=== PATIENT | male | born 1955 | race Two or more races ===

== ENCOUNTER 2019-02-14 09:51 | Emergency (ER) | payer MEDICARE ==
[~2019-02-14] VITALS: Ht 177.8 cm; Wt 99.4 kg
--- NOTE | 2019-02-14 10:08 | NUR ---
PT TO ED FOR LARGE "INTERNAL" LUMP NEAR RECTUM SINCE FRIDAY. PT STATES LUMP STARTED SMALL AND DRAINED ON FRIDAY, BUT SINCE THEN IT HAS GOTTEN LARGER AND MORE PAINFUL WTIH MINIMAL DRAINAGE. PT CONNECTED TO MONITORS. VSS. AWAITING EDMD ASSESSMENT.
--- NOTE | 2019-02-14 10:39 | NUR ---
iv established and labs and bc x1 drawn. lab at to collect 2nd set of bc. pt resting in room with at bs. no needs expressed. vss. call light within reach. awaiting lab results and ct.
[2019-02-14 10:53] LABS: MEAN CORPUSCULAR HEMOGLOBIN 29.6 pg (27.5-34.5); MEAN CORPUSCULAR HGB CONC 33.5 g/dL (33.2-36.2); MEAN CORPUSCULAR VOLUME 88.3 fL (81-97); MEAN PLATELET VOLUME 7.6 fL (7.4-10.4); PLATELET COUNT 261 x10^3/uL (130-400); RED BLOOD COUNT 4.98 x10^6/uL (4.38-5.82); RED CELL DISTRIBUTION WIDTH 13.6 % (9.4-14.8)
[2019-02-14 11:03] LABS: ALBUMIN 3.4 g/dL (3.4-5.0); ANION GAP 8 mmol/L (5-15); CALCIUM 8.5 mg/dL (8.5-10.1); CHLORIDE 105 mmol/L (98-107)
[2019-02-14 11:06] LABS: ALANINE AMINOTRANSFERASE 36 U/L (12-78); ALKALINE PHOSPHATASE 72 U/L (45-117); BILIRUBIN,TOTAL 3.2 mg/dL (0.2-1.0); CREATININE 1.36 mg/dL (0.7-1.3); TOTAL PROTEIN 7.1 g/dL (6.4-8.2)
[2019-02-14 11:30] LABS: BASOPHILS # (AUTO) 0.05 x10^3/uL (0-0.1); BASOPHILS % (AUTO) 0 % (0-1); EOSINOPHILS # (AUTO) 0.02 x10^3/uL (0-0.4); EOSINOPHILS % (AUTO) 0 % (1-7); LYMPHOCYTES % (AUTO) 10 % (22-44); MD SCAN; MONOCYTES # (AUTO) 0.84 x10^3/uL (0.2-0.8); MONOCYTES % (AUTO) 7 % (2-9); NEUTROPHILS # (AUTO) 10.37 x10^3/uL (1.8-6.8); NEUTROPHILS % (AUTO) 83 % (42-75)
--- NOTE | 2019-02-14 11:31 | NUR ---
PT RESTING IN ROOM WITH AT BS. VSS. NO NEEDS EXPRESSED. AWAITING CT.
[2019-02-14] MEDS ORDERED: OMNIPAQUE 350 MG/ML, 100ML BOTTLE ONE (11:54)
--- NOTE | 2019-02-14 11:56 | NUR ---
PT BACK FROM CT. NO NEEDS EXPRESSED. VSS. AWAITING CT RESULTS.
--- NOTE | 2019-02-14 12:16 | NUR ---
all results back at this time. chart up for recheck.
[2019-02-14] MEDS ORDERED: LIDOCAINE-MPF 1%, 5ML ONE (12:40)
--- NOTE | 2019-02-14 12:56 | NUR ---
PT RESTING IN ROOM WITH AT BS. VSS. NO NEEDS EXPRESSED. PA TO BS FOR I&D.
[2019-02-14] MEDS ORDERED: LIDOCAINE-MPF 1%, 5ML INFIL ONE (13:00)
[2019-02-14] MEDS ORDERED: ONDANSETRON 2MG/ML, 2ML IVPush ONE (13:30)
[2019-02-14] MEDS ORDERED: CEFAZOLIN PMX 1GM/50ML 50 ML IV ONE (13:30)
[2019-02-14] MEDS ORDERED: HYDROmorphone 1 MG/ML, 1ML INJ IV ONE (13:30)
[2019-02-14] MEDS ORDERED: HYDROmorphone 2 MG/ML, 1ML IM ONE (13:30)
[2019-02-14] MEDS ORDERED: SULFAMETH./TRIMETHOPRIM DS 800MG/160MG TABLET PO ONE ×2 (13:30)
[2019-02-14] MEDS ORDERED: CEFAZOLIN 1,000 MG IV ONE (13:30)
[2019-02-14] MEDS ORDERED: CEFAZOLIN 1,000 MG IM ONE (13:30)
[2019-02-14] MEDS ORDERED: SULFAMETH./TRIMETHOPRIM DS 800MG/160MG TABLET ONE (13:31)
[2019-02-14] MEDS ORDERED: CEFAZOLIN PMX 1GM/50ML 50 ML ONE (13:32)
[2019-02-14] MEDS ORDERED: HYDROmorphone 1 MG/ML, 1ML VIAL ONE (13:32)
[2019-02-14] MEDS ORDERED: ONDANSETRON 2MG/ML, 2ML ONE (13:32)
[2019-02-14 13:50] VITALS: BP 126/69
== END 2019-02-14 14:14 | disposition home or self-care (01) ==
LOC: ED 11:37
DX: L02.31 Cutaneous abscess of buttock (principal); K61.1 Rectal abscess
CPT/HCPCS: 36415; 46050; 72193; 80053; 85025; 87040; 96365; 96375; 99284; J0690; J1170; J2405; Q9967; 46040

== ENCOUNTER 2019-02-16 06:41 | Inpatient (IN) | payer MEDICARE ==
[~2019-02-16] VITALS: Ht 177.8 cm; Wt 102.6 kg
[2019-02-16] MEDS ORDERED: ONDANSETRON 2MG/ML, 2ML IVPush ONE (07:00)
[2019-02-16] MEDS ORDERED: VANCOMYCIN 1,500 MG in SODIUM CHLORIDE 0.9% 250 ML IVPB ONE (07:00)
[2019-02-16] MEDS ORDERED: MORPHINE SULFATE 4 MG/ML, 1ML ONE ×2 (07:21→08:41)
[2019-02-16] MEDS ORDERED: ONDANSETRON 2MG/ML, 2ML ONE ×2 (07:21→21:11)
[2019-02-16] MEDS ORDERED: LIDOCAINE-MPF 1%, 5ML INFIL ONE (07:30)
[2019-02-16] MEDS ORDERED: SODIUM CHLORIDE 0.9% 1,000ML IVBOLUS ONE (07:30)
[2019-02-16] MEDS: MORPHINE SULFATE 4 MG/ML, 1ML IV PRN ×2 (07:32→08:46)
[2019-02-16 07:42] LABS: MEAN CORPUSCULAR HEMOGLOBIN 29.5 pg (27.5-34.5); MEAN CORPUSCULAR HGB CONC 33.2 g/dL (33.2-36.2); MEAN CORPUSCULAR VOLUME 88.8 fL (81-97); MEAN PLATELET VOLUME 7.4 fL (7.4-10.4); PLATELET COUNT 293 x10^3/uL (130-400); RED BLOOD COUNT 4.43 x10^6/uL (4.38-5.82); RED CELL DISTRIBUTION WIDTH 13.6 % (9.4-14.8)
--- NOTE | 2019-02-16 07:42 | NUR ---
Labs and blood cultures drawn, IV fluid bolus and antibiotics infusing as documented. Patient is resting in gurney in prone position currently denying pain. Continuous blood pressure and SPO2 monitoring in place. Call peck within reach.
[2019-02-16] MEDS ORDERED: LIDOCAINE-MPF 1%, 5ML ONE (07:49)
[2019-02-16 07:53] LABS: ALBUMIN 2.9 g/dL (3.4-5.0); ANION GAP 9 mmol/L (5-15); CALCIUM 8.5 mg/dL (8.5-10.1); CHLORIDE 105 mmol/L (98-107)
[2019-02-16 08:01] LABS: MD YES
[2019-02-16 08:05] LABS: BAND#(MANUAL) 2.02 x10^3/uL; BANDS%(MANUAL) 16 % (0-7); EOS#(MANUAL) 0.13 x10^3/uL (0.0-0.4); EOS% (MANUAL) 1 % (1-7); LYMPHS% (MANUAL) 4 % (22-44); MONOS#(MANUAL) 1.64 x10^3/uL (0.3-2.7); MONOS% (MANUAL) 13 % (2-9); SEG#(MANUAL) 8.32 x10^3/uL (1.8-6.8); SEGS% (MANUAL) 66 % (42-75)
[2019-02-16 08:06] LABS: <PLATELET ESTIMATE> ADEQUATE; <PLT MORPHOLOGY> NORMAL PLT MORPH; <RBC MORPHOLOGY> NORMAL
[2019-02-16] MEDS ORDERED: AMPICILLIN/SULBACTAM 3 GM in SODIUM CHLORIDE 0.9% 100 ML IV ONE (08:30)
[2019-02-16] MEDS ORDERED: CEPH-368 PO (08:37)
[2019-02-16] MEDS ORDERED: SULF1TAB24 PO (08:37)
[2019-02-16 09:29] LABS: FREE T4 (FREE THYROXINE) 1.41 ng/dL (0.76-1.46)
[2019-02-16] MEDS ORDERED: PHARMACY MAY ADJ FOR RENAL FX MC PRN (09:30)
[2019-02-16] MEDS ORDERED: VANCOMYCIN PER PHARMACY MC PRN (09:30)
[2019-02-16] MEDS ORDERED: POLYETHYLENE GLYCOL 17 GM PACKET PO PRN (09:30)
[2019-02-16] MEDS ORDERED: ONDANSETRON ODT 4 MG PO PRN (09:30)
[2019-02-16] MEDS ORDERED: LABETALOL 5MG/ML, 20ML IVPush PRN (09:30)
[2019-02-16] MEDS ORDERED: ONDANSETRON 2MG/ML, 2ML IVPush PRN (09:30)
[2019-02-16 09:52] VITALS: BP 104/58
[2019-02-16] MEDS ORDERED: PHARMACOKINETIC MONITORING MC PRN (10:00)
[2019-02-16] MEDS: D5%-0.45% NACL 1,000 ML IV SCH ×2 (10:56→20:26)
[2019-02-16] MEDS ORDERED: VANCOMYCIN 2,000 MG in SODIUM CHLORIDE 0.9% 500 ML IV SCH (11:00)
[2019-02-16] MEDS: PIPERACILLIN/TAZO/PMX 3.375GM 50 ML IV SCH ×2 (12:02→18:01)
[2019-02-16 13:26] VITALS: BP 91/55
[2019-02-16] MEDS ORDERED: MORPHINE SULFATE 4 MG/ML, 1ML IVPush PRN (14:00)
[2019-02-16 19:00] VITALS: BP 95/54
[2019-02-16] MEDS: VANCOMYCIN 2,000 MG in SODIUM CHLORIDE 0.9% 500 ML IV SCH ×2 (20:26→22:51)
[2019-02-16] MEDS ORDERED: BUPIVACAINE/PF 0.5% ONE (20:49)
[2019-02-16] MEDS ORDERED: FENTANYL PF 100 MCG/2ML ONE ×2 (21:02→21:27)
[2019-02-16] MEDS ORDERED: PROPOFOL 10 MG/ML, 20ML ONE (21:11)
[2019-02-16] MEDS ORDERED: DEXAMETHASONE 4 MG/ML, 1ML ONE (21:11)
[2019-02-16] MEDS ORDERED: BUPIVACAINE/PF 0.5% INFIL ONE (21:13)
[2019-02-16] MEDS ORDERED: MEPERIDINE/PF 25MG/0.5ML IVPush PRN (22:00)
[2019-02-16] MEDS ORDERED: OXYcodone 5 MG/5 ML ORAL.SOL UDC PO PRN (22:00)
[2019-02-16] MEDS ORDERED: hydrALAzine 20 MG/ML, 1ML IV PRN (22:00)
[2019-02-16] MEDS ORDERED: FENTANYL PF 100 MCG/2ML IV PRN (22:00)
[2019-02-16] MEDS ORDERED: PROMETHAZINE 25 MG/ML, 1ML IV PRN (22:00)
[2019-02-16] MEDS ORDERED: LABETALOL 5MG/ML, 20ML IV PRN (22:00)
[2019-02-16] MEDS ORDERED: METOPROLOL 1 MG/ML, 5ML IV PRN (22:00)
[2019-02-16] MEDS ORDERED: PROCHLORPERAZINE 5 MG/ML, 2ML IV PRN (22:00)
[2019-02-16] MEDS ORDERED: HALOPERIDOL 5 MG/ML IV PRN (22:00)
[2019-02-16] MEDS ORDERED: HYDROmorphone 2 MG/ML, 1ML IVPush PRN (22:00)
[2019-02-16] MEDS ORDERED: OXYcodone 5 MG/5 ML ORAL.SOL UDC ONE (22:18)
[2019-02-17] MEDS: PIPERACILLIN/TAZO/PMX 3.375GM 50 ML IV SCH ×4 (01:27→19:54)
[2019-02-17 03:41] VITALS: BP 110/64
[2019-02-17 05:28] LABS: MEAN CORPUSCULAR HEMOGLOBIN 30.5 pg (27.5-34.5); MEAN CORPUSCULAR HGB CONC 33.9 g/dL (33.2-36.2); MEAN CORPUSCULAR VOLUME 89.8 fL (81-97); MEAN PLATELET VOLUME 7.6 fL (7.4-10.4); PLATELET COUNT 313 x10^3/uL (130-400); RED BLOOD COUNT 4.02 x10^6/uL (4.38-5.82); RED CELL DISTRIBUTION WIDTH 14.1 % (9.4-14.8)
[2019-02-17 05:36] LABS: CHLORIDE 105 mmol/L (98-107)
[2019-02-17 05:51] LABS: ALANINE AMINOTRANSFERASE 47 U/L (12-78); ALBUMIN 2.3 g/dL (3.4-5.0); ALKALINE PHOSPHATASE 94 U/L (45-117); ANION GAP 6 mmol/L (5-15); BILIRUBIN,TOTAL 1.2 mg/dL (0.2-1.0); CALCIUM 8.2 mg/dL (8.5-10.1); THYROID STIMULATING HORMONE 0.884 mIU/L (0.358-3.740); TOTAL PROTEIN 6.1 g/dL (6.4-8.2)
[2019-02-17 06:00] LABS: BASOPHILS # (AUTO) 0.01 x10^3/uL (0-0.1); BASOPHILS % (AUTO) 0 % (0-1); EOSINOPHILS % (AUTO) 0 % (1-7); LYMPHOCYTES # (AUTO) 0.57 x10^3/uL (1-3.4); LYMPHOCYTES % (AUTO) 4 % (22-44); MD SCAN; MONOCYTES % (AUTO) 1 % (2-9); NEUTROPHILS # (AUTO) 12.98 x10^3/uL (1.8-6.8); NEUTROPHILS % (AUTO) 94 % (42-75)
[2019-02-17 06:26] VITALS: BP 102/60
[2019-02-17] MEDS: PANTOPRAZOLE 40 MG IV IVPush SCH (07:54)
[2019-02-17] MEDS: SENNA/DOCUSATE TABLET PO SCH (07:55)
[2019-02-17 14:15] VITALS: BP 110/62
[2019-02-17] MEDS: D5%-0.45% NACL 1,000 ML IV SCH (14:16)
[2019-02-17] MEDS: VANCOMYCIN 2,000 MG in SODIUM CHLORIDE 0.9% 500 ML IV SCH (17:01)
[2019-02-17 19:14] VITALS: BP 100/63
[2019-02-18] MEDS: PIPERACILLIN/TAZO/PMX 3.375GM 50 ML IV SCH ×4 (01:23→20:27)
[2019-02-18] MEDS: D5%-0.45% NACL 1,000 ML IV SCH ×2 (01:23→08:46)
[2019-02-18 01:32] VITALS: BP 121/75
[2019-02-18 05:31] LABS: ALANINE AMINOTRANSFERASE 47 U/L (12-78); ALBUMIN 2.3 g/dL (3.4-5.0); ANION GAP 7 mmol/L (5-15); CALCIUM 8.3 mg/dL (8.5-10.1); CHLORIDE 108 mmol/L (98-107); CREATININE 1.19 mg/dL (0.7-1.3)
[2019-02-18 05:34] LABS: ALKALINE PHOSPHATASE 110 U/L (45-117); BILIRUBIN,TOTAL 0.6 mg/dL (0.2-1.0); TOTAL PROTEIN 5.9 g/dL (6.4-8.2)
[2019-02-18 05:46] LABS: MEAN CORPUSCULAR HEMOGLOBIN 29.1 pg (27.5-34.5); MEAN CORPUSCULAR HGB CONC 32.5 g/dL (33.2-36.2); MEAN CORPUSCULAR VOLUME 89.6 fL (81-97); MEAN PLATELET VOLUME 7.7 fL (7.4-10.4); PLATELET COUNT 350 x10^3/uL (130-400); RED CELL DISTRIBUTION WIDTH 14.8 % (9.4-14.8)
[2019-02-18 06:29] VITALS: BP 125/77
[2019-02-18] MEDS: PANTOPRAZOLE 40 MG IV IVPush SCH (06:41)
[2019-02-18 07:01] LABS: MD YES
[2019-02-18 07:03] LABS: BAND#(MANUAL) 2.56 x10^3/uL; BANDS%(MANUAL) 16 % (0-7); LYMPH#(MANUAL) 0.48 x10^3/uL (1-3.4); LYMPHS% (MANUAL) 3 % (22-44); MONOS% (MANUAL) 5 % (2-9); SEG#(MANUAL) 12.16 x10^3/uL (1.8-6.8); SEGS% (MANUAL) 76 % (42-75)
[2019-02-18 07:04] LABS: <PLATELET ESTIMATE> ADEQUATE; <PLT MORPHOLOGY> NORMAL PLT MORPH
[2019-02-18] MEDS: SENNA/DOCUSATE TABLET PO SCH (07:28)
[2019-02-18 07:33] LABS: <RBC MORPHOLOGY> NORMAL
[2019-02-18] MEDS: SODIUM CHLORIDE 0.45% 1,000 ML IV SCH ×2 (09:46→20:27)
[2019-02-18] MEDS: VANCOMYCIN 2,000 MG in SODIUM CHLORIDE 0.9% 500 ML IV SCH (10:51)
[2019-02-18 14:04] VITALS: BP 98/55
[2019-02-18 18:59] VITALS: BP 120/70
[2019-02-19 00:59] VITALS: BP 119/62
[2019-02-19] MEDS: PIPERACILLIN/TAZO/PMX 3.375GM 50 ML IV SCH ×4 (02:54→19:45)
[2019-02-19 04:45] LABS: BASOPHILS # (AUTO) 0.02 x10^3/uL (0-0.1); BASOPHILS % (AUTO) 0 % (0-1); EOSINOPHILS # (AUTO) 0.07 x10^3/uL (0-0.4); EOSINOPHILS % (AUTO) 1 % (1-7); LYMPHOCYTES # (AUTO) 1.75 x10^3/uL (1-3.4); LYMPHOCYTES % (AUTO) 20 % (22-44); MD NO; MEAN CORPUSCULAR HEMOGLOBIN 29.9 pg (27.5-34.5); MEAN CORPUSCULAR HGB CONC 33.3 g/dL (33.2-36.2); MEAN PLATELET VOLUME 7.4 fL (7.4-10.4); MONOCYTES % (AUTO) 9 % (2-9); NEUTROPHILS # (AUTO) 6.32 x10^3/uL (1.8-6.8); NEUTROPHILS % (AUTO) 71 % (42-75); PLATELET COUNT 384 x10^3/uL (130-400); RED BLOOD COUNT 4.15 x10^6/uL (4.38-5.82); RED CELL DISTRIBUTION WIDTH 14.6 % (9.4-14.8)
[2019-02-19 04:47] LABS: ALBUMIN 2.2 g/dL (3.4-5.0); ANION GAP 7 mmol/L (5-15); CHLORIDE 112 mmol/L (98-107)
[2019-02-19] MEDS: VANCOMYCIN 2,000 MG in SODIUM CHLORIDE 0.9% 500 ML IV SCH ×2 (05:16→23:19)
[2019-02-19] MEDS: SODIUM CHLORIDE 0.45% 1,000 ML IV SCH ×2 (05:17→16:18)
[2019-02-19 07:23] VITALS: BP 114/70
[2019-02-19] MEDS: PANTOPRAZOLE 40 MG IV IVPush SCH (08:01)
[2019-02-19] MEDS: SENNA/DOCUSATE TABLET PO SCH (08:01)
[2019-02-19 13:00] VITALS: BP 119/70
[2019-02-19 19:03] VITALS: BP 132/77
[2019-02-20 00:57] VITALS: BP 138/84
[2019-02-20] MEDS: SODIUM CHLORIDE 0.45% 1,000 ML IV SCH ×3 (02:18→21:06)
[2019-02-20] MEDS: PIPERACILLIN/TAZO/PMX 3.375GM 50 ML IV SCH ×2 (02:19→07:36)
[2019-02-20 05:27] LABS: BASOPHILS # (AUTO) 0.04 x10^3/uL (0-0.1); BASOPHILS % (AUTO) 1 % (0-1); EOSINOPHILS # (AUTO) 0.23 x10^3/uL (0-0.4); EOSINOPHILS % (AUTO) 3 % (1-7); LYMPHOCYTES # (AUTO) 1.68 x10^3/uL (1-3.4); LYMPHOCYTES % (AUTO) 22 % (22-44); MD NO; MEAN CORPUSCULAR HEMOGLOBIN 29.9 pg (27.5-34.5); MEAN CORPUSCULAR HGB CONC 33.3 g/dL (33.2-36.2); MEAN CORPUSCULAR VOLUME 89.9 fL (81-97); MEAN PLATELET VOLUME 7.2 fL (7.4-10.4); MONOCYTES # (AUTO) 0.58 x10^3/uL (0.2-0.8); MONOCYTES % (AUTO) 8 % (2-9); NEUTROPHILS # (AUTO) 4.97 x10^3/uL (1.8-6.8); NEUTROPHILS % (AUTO) 66 % (42-75); PLATELET COUNT 392 x10^3/uL (130-400); RED BLOOD COUNT 4.22 x10^6/uL (4.38-5.82); RED CELL DISTRIBUTION WIDTH 14.3 % (9.4-14.8)
[2019-02-20 05:39] LABS: ALANINE AMINOTRANSFERASE 45 U/L (12-78); ALBUMIN 2.3 g/dL (3.4-5.0); ANION GAP 6 mmol/L (5-15); CALCIUM 8.2 mg/dL (8.5-10.1); CHLORIDE 111 mmol/L (98-107); CREATININE 1.12 mg/dL (0.7-1.3)
[2019-02-20 05:41] LABS: ALKALINE PHOSPHATASE 54 U/L (45-117); BILIRUBIN,TOTAL 0.8 mg/dL (0.2-1.0); TOTAL PROTEIN 5.5 g/dL (6.4-8.2)
[2019-02-20] MEDS: PANTOPROZOLE 40MG TABLET PO SCH (05:51)
[2019-02-20] MEDS: SENNA/DOCUSATE TABLET PO SCH (07:37)
[2019-02-20] MEDS: ERTAPENEM 1 GM in SODIUM CHLORIDE 0.9% 50 ML IV SCH (09:11)
[2019-02-20 09:19] VITALS: BP 115/71
[2019-02-20 13:11] VITALS: BP 131/77
[2019-02-20 20:15] VITALS: BP 137/77
[2019-02-21 00:33] VITALS: BP 145/84
[2019-02-21] MEDS: PANTOPROZOLE 40MG TABLET PO SCH (05:17)
[2019-02-21 05:18] LABS: BASOPHILS # (AUTO) 0.02 x10^3/uL (0-0.1); BASOPHILS % (AUTO) 0 % (0-1); EOSINOPHILS # (AUTO) 0.34 x10^3/uL (0-0.4); EOSINOPHILS % (AUTO) 3 % (1-7); LYMPHOCYTES # (AUTO) 1.86 x10^3/uL (1-3.4); LYMPHOCYTES % (AUTO) 18 % (22-44); MD NO; MEAN CORPUSCULAR HEMOGLOBIN 30.3 pg (27.5-34.5); MEAN CORPUSCULAR HGB CONC 33.7 g/dL (33.2-36.2); MEAN CORPUSCULAR VOLUME 89.9 fL (81-97); MEAN PLATELET VOLUME 7.1 fL (7.4-10.4); MONOCYTES # (AUTO) 0.43 x10^3/uL (0.2-0.8); MONOCYTES % (AUTO) 4 % (2-9); NEUTROPHILS # (AUTO) 7.71 x10^3/uL (1.8-6.8); NEUTROPHILS % (AUTO) 74 % (42-75); PLATELET COUNT 391 x10^3/uL (130-400); RED BLOOD COUNT 4.28 x10^6/uL (4.38-5.82); RED CELL DISTRIBUTION WIDTH 14.4 % (9.4-14.8)
[2019-02-21] MEDS: SODIUM CHLORIDE 0.45% 1,000 ML IV SCH ×2 (05:18→13:16)
[2019-02-21 05:29] LABS: ALANINE AMINOTRANSFERASE 52 U/L (12-78); ALBUMIN 2.5 g/dL (3.4-5.0); ANION GAP 6 mmol/L (5-15); CALCIUM 8.4 mg/dL (8.5-10.1); CHLORIDE 110 mmol/L (98-107); CREATININE 0.97 mg/dL (0.7-1.3)
[2019-02-21 05:31] LABS: ALKALINE PHOSPHATASE 64 U/L (45-117); BILIRUBIN,TOTAL 0.7 mg/dL (0.2-1.0); TOTAL PROTEIN 5.5 g/dL (6.4-8.2)
[2019-02-21 06:51] VITALS: BP 137/67
[2019-02-21] MEDS: ERTAPENEM 1 GM in SODIUM CHLORIDE 0.9% 50 ML IV SCH (09:15)
[2019-02-21] MEDS: SENNA/DOCUSATE TABLET PO SCH (09:15)
[2019-02-21] MEDS ORDERED: METR500T PO (11:12)
[2019-02-21] MEDS ORDERED: AMOX1TAB64 PO (11:12)
[2019-02-21 12:23] VITALS: BP 143/75
[2019-02-21 15:00] VITALS: BP 145/79
[2019-02-21] MEDS ORDERED: ACETAMINOPHEN 325 MG TABLET PO ONE (15:30)
== END 2019-02-21 15:30 | disposition home health service (06) | DRG 853 ==
LOC: ED 07:19 → 4NOR 08:31 → ED 08:31 → 4NOR 09:35
PROVIDERS: ADMIT Internal Medicine; ATTEND Internal Medicine
PROC: 0D9Q0ZZ Drainage of Anus, Open Approach (ICD-10-PCS; 2019-02-16)
PROC: 0D9P0ZZ Drainage of Rectum, Open Approach (ICD-10-PCS; principal; 2019-02-16 21:00)
DX: A41.9 Sepsis, unspecified organism (principal); N17.0 Acute kidney failure with tubular necrosis; L02.31 Cutaneous abscess of buttock; K61.2 Anorectal abscess; L03.317 Cellulitis of buttock; E78.5 Hyperlipidemia, unspecified; K62.89 Other specified diseases of anus and rectum; N18.9 Chronic kidney disease, unspecified; I12.9 Hypertensive chronic kidney disease with stage 1 through stage 4 chronic kidney disease, or unspecified chronic kidney disease; D64.9 Anemia, unspecified; B96.20 Unspecified Escherichia coli [E. coli] as the cause of diseases classified elsewhere; B96.6 Bacteroides fragilis [B. fragilis] as the cause of diseases classified elsewhere; B95.1 Streptococcus, group B, as the cause of diseases classified elsewhere; Z90.5 Acquired absence of kidney; Z79.899 Other long term (current) drug therapy
CPT/HCPCS: 36415; 80048; 80053; 80202; 82040; 82570; 83605; 83735; 84100; 84145; 84300; 84439; 84443; 85025; 87040; 87070; 87075; 87077; 87186; 87205; 96365; 96366; 96375; 99285; G0378; J0295; J1100; J1335; J2405; J2543; J2704; J3010; J3370; C9113; J2270; J7030; J7040; J7050

== ENCOUNTER → 2020-01-31 | Outpatient (CLI) | payer MEDICARE ==
[~2020-01-31] MED LIST: AMOX1TAB64 PO; CEPH-368 PO; METR500T PO; SULF1TAB24 PO
== END | disposition home or self-care (01) ==
LOC: CFH 09:40
PROVIDERS: ATTEND Internal Medicine Nephrology
DX: N18.2 Chronic kidney disease, stage 2 (mild) (principal); R39.198 Other difficulties with micturition; E78.5 Hyperlipidemia, unspecified; E55.9 Vitamin D deficiency, unspecified; Z90.5 Acquired absence of kidney
CPT/HCPCS: 76770